=== PATIENT | male | born 1935 | race Caucasian/White ===

== ENCOUNTER → 2019-01-23 09:43 | Outpatient (CLI) | payer MEDICARE, OTHER, SELFPAY ==
[2019-01-23 11:03] LABS: Blood Urea Nitrogen 17 mg/dL (9-20); Calcium 8.9 mg/dL (8.4-10.2); Carbon Dioxide 32 mmol/L (22-32); Chloride 103 mmol/L (98-107); Estimated Glomerular Filt Rate > 60.0 mL/min (>60); Glucose 139 mg/dL (80-110); HEMOLYSIS < 15 (0-50); Potassium 4.1 mmol/L (3.4-5.1); Sodium 140 mmol/L (137-145)
[2019-01-23 14:04] LABS: Creatinine Urine Random 94.3 mg/dL
[2019-01-23 14:07] LABS: Microalbumi Creatinin Ratio Ur 12.7 ug/mg CR (<30); Microalbumin Urine Random 1.2 mg/dL (0-1.6)
== END ==
PROVIDERS: PCP Internal Medicine; Visit Provider Internal Medicine
DX: I10 Essential (primary) hypertension (principal); R73.01 Impaired fasting glucose; R80.8 Other proteinuria
CPT/HCPCS: 36415; 80048; 82043; 82570

== ENCOUNTER → 2019-05-17 09:13 | Outpatient (CLI) | payer MEDICARE, OTHER, SELFPAY ==
[2019-05-17 10:30] LABS: Add Manual Diff / Slide Review NO; Basophils Absolute Auto 0 /uL (0-100); Basophils Percent Auto 0.5 % (0-2); Eosinophils Absolute Auto 200 /uL (0-450); Eosinophils Percent Auto 2.6 % (2-4); Hematocrit 51.9 % (41-53); Hemoglobin 17.2 g/dL (13.5-17.5); Lymphocytes Absolute Auto 2400 /uL (1100-4500); Lymphocytes Percent Auto 34.7 % (25-40); Mean Corpuscular HGB Conc 33.1 % (30-36); Mean Corpuscular Hemoglobin 30.5 PG (26-34); Mean Corpuscular Volume 92.1 fL (80-100); Monocytes Absolute Auto 700 /uL (0-900); Monocytes Percent Auto 10.5 % (3-14); Neutrophils Absolute Auto 3600 /uL (1500-7000); Neutrophils Percent Auto 51.7 % (50-75); Platelet Count 172 X10^3/uL (150-400); Red Blood Cell Count 5.63 X10^6/uL (4.5-5.9); Red Cell Distribution Width 13.8 % (11.6-14.8); White Blood Cell Count 6.9 X10^3/uL (4.5-11.0)
[2019-05-17 10:51] LABS: Alanine Aminotransferase 28 IU/L (21-72); Albumin 3.9 g/dL (3.5-5.0); Albumin Globulin Ratio 1.3 (1.0-2.8); Alkaline Phosphatase 82 U/L (38-126); Aspartate Aminotransferase 31 IU/L (17-59); Bilirubin Total 0.8 mg/dL (0.2-1.3); Blood Urea Nitrogen 13 mg/dL (9-20); Calcium 8.6 mg/dL (8.4-10.2); Carbon Dioxide 31 mmol/L (22-32); Chloride 102 mmol/L (98-107); Cholesterol 154 mg/dL (140-199); Estimated Glomerular Filt Rate > 60.0 mL/min (>60); Glucose 101 mg/dL (80-110); HDL Cholesterol 43 mg/dL (40-60); HEMOLYSIS < 15 (0-50); LDL Cholesterol Calculated 93 mg/dL (<100); Potassium 4.1 mmol/L (3.4-5.1); Sodium 139 mmol/L (137-145); Total Protein 6.9 g/dL (6.3-8.2); Triglycerides 89 mg/dL (35-150)
== END ==
PROVIDERS: PCP Internal Medicine; Visit Provider Internal Medicine
DX: E78.00 Pure hypercholesterolemia, unspecified (principal); I10 Essential (primary) hypertension; D75.1 Secondary polycythemia; E11.9 Type 2 diabetes mellitus without complications; I48.91 Unspecified atrial fibrillation
CPT/HCPCS: 36415; 80053; 80061; 85025

== ENCOUNTER → 2020-02-13 11:08 | Outpatient (CLI) | payer MEDICARE, OTHER, SELFPAY ==
[2020-02-13 12:47] LABS: Add Manual Diff / Slide Review NO; Basophils Absolute Auto 0 /uL (0-100); Basophils Percent Auto 0.6 % (0-2); Eosinophils Absolute Auto 200 /uL (0-450); Eosinophils Percent Auto 3.2 % (2-4); Hematocrit 50.8 % (41-53); Hemoglobin 17.1 g/dL (13.5-17.5); Lymphocytes Absolute Auto 1600 /uL (1100-4500); Lymphocytes Percent Auto 27.8 % (25-40); Mean Corpuscular HGB Conc 33.6 % (30-36); Mean Corpuscular Hemoglobin 30.3 PG (26-34); Mean Corpuscular Volume 90.1 fL (80-100); Monocytes Absolute Auto 700 /uL (0-900); Monocytes Percent Auto 11.7 % (3-14); Neutrophils Absolute Auto 3300 /uL (1500-7000); Neutrophils Percent Auto 56.7 % (50-75); Platelet Count 143 X10^3/uL (150-400); Red Blood Cell Count 5.64 X10^6/uL (4.5-5.9); White Blood Cell Count 5.9 X10^3/uL (4.5-11.0)
[2020-02-13 13:00] LABS: Hemoglobin A1C% w Est Avg Glu 5.8 % (4.0-6.0)
[2020-02-13 13:14] LABS: Alanine Aminotransferase 21 IU/L (<50); Albumin 3.8 g/dL (3.5-5.0); Albumin Globulin Ratio 1.3 (1.0-2.8); Alkaline Phosphatase 67 U/L (38-126); Aspartate Aminotransferase 34 IU/L (17-59); Bilirubin Total 0.8 mg/dL (0.2-1.3); Blood Urea Nitrogen 17 mg/dL (9-20); Calcium 8.9 mg/dL (8.4-10.2); Carbon Dioxide 31 mmol/L (22-32); Chloride 103 mmol/L (98-107); Cholesterol 144 mg/dL (140-199); Estimated Glomerular Filt Rate > 60.0 mL/min (>60); Glucose 87 mg/dL (80-110); HDL Cholesterol 32 mg/dL (40-60); HEMOLYSIS 20 (0-50); LDL Cholesterol Calculated 91 mg/dL (<100); Potassium 4.5 mmol/L (3.4-5.1); Sodium 139 mmol/L (137-145); Total Protein 6.8 g/dL (6.3-8.2); Triglycerides 107 mg/dL (35-150)
[2020-02-13 14:30] LABS: Creatinine Urine Random 112.1 mg/dL
[2020-02-13 14:35] LABS: Microalbumi Creatinin Ratio Ur 60.6 ug/mg CR (<30); Microalbumin Urine Random 6.8 mg/dL (0-1.6)
== END ==
PROVIDERS: PCP Internal Medicine; Referring Provider Internal Medicine; Visit Provider Internal Medicine
DX: I48.91 Unspecified atrial fibrillation (principal)
CPT/HCPCS: 36415; 80053; 80061; 82043; 82570; 83036; 85025

== ENCOUNTER → 2020-11-07 15:11 | Outpatient (ROUT) | payer MEDICARE, OTHER, SELFPAY ==
[2020-11-07 15:54] LABS: Add Manual Diff / Slide Review NO; Basophils Absolute Auto 0 /uL (0-100); Basophils Percent Auto 0.6 % (0-2); Eosinophils Absolute Auto 300 /uL (0-450); Eosinophils Percent Auto 3.5 % (2-4); Hematocrit 51.9 % (41-53); Hemoglobin 17.3 g/dL (13.5-17.5); Lymphocytes Absolute Auto 1800 /uL (1100-4500); Mean Corpuscular HGB Conc 33.3 % (30-36); Mean Corpuscular Hemoglobin 30.5 PG (26-34); Mean Corpuscular Volume 91.5 fL (80-100); Monocytes Absolute Auto 800 /uL (0-900); Monocytes Percent Auto 11.7 % (3-14); Neutrophils Absolute Auto 4300 /uL (1500-7000); Neutrophils Percent Auto 59.2 % (50-75); Platelet Count 151 X10^3/uL (150-400); Red Blood Cell Count 5.68 X10^6/uL (4.5-5.9); Red Cell Distribution Width 14.2 % (11.6-14.8); White Blood Cell Count 7.3 X10^3/uL (4.5-11.0)
[2020-11-07 16:04] LABS: Alanine Aminotransferase 25 IU/L (<50); Albumin 3.8 g/dL (3.5-5.0); Albumin Globulin Ratio 1.2 (1.0-2.8); Alkaline Phosphatase 73 U/L (38-126); Aspartate Aminotransferase 35 IU/L (17-59); BUN Creatinine Ratio 15.1 (6-22); Bilirubin Total 0.6 mg/dL (0.2-1.3); Blood Urea Nitrogen 14 mg/dL (9-20); Calcium 8.9 mg/dL (8.4-10.2); Carbon Dioxide 30 mmol/L (22-32); Chloride 104 mmol/L (98-107); Cholesterol 154 mg/dL (140-199); Estimated Glomerular Filt Rate > 60.0 mL/min (>60); Globulin 3.1 g/dL (1.7-4.1); Glucose 99 mg/dL (80-110); HDL Cholesterol 42 mg/dL (40-60); HEMOLYSIS 19 (0-50); LDL Cholesterol Calculated 93 mg/dL (<100); Potassium 4.2 mmol/L (3.4-5.1); Sodium 141 mmol/L (137-145); Total Protein 6.9 g/dL (6.3-8.2); Triglycerides 97 mg/dL (35-150)
[2020-11-07 16:42] LABS: Hemoglobin A1C% w Est Avg Glu 5.8 % (4.0-6.0)
== END ==
PROVIDERS: PCP Internal Medicine; Visit Provider Physician Assistant
DX: D75.1 Secondary polycythemia (principal); E78.00 Pure hypercholesterolemia, unspecified; E11.21 Type 2 diabetes mellitus with diabetic nephropathy; I10 Essential (primary) hypertension; K06.8 Other specified disorders of gingiva and edentulous alveolar ridge
CPT/HCPCS: 80053; 80061; 83036; 85025

== ENCOUNTER → 2020-11-26 09:51 | Outpatient (CLI) | payer MEDICARE, OTHER, SELFPAY ==
[2020-11-26 11:00] LABS: Hemoglobin A1C% w Est Avg Glu 5.9 % (4.0-6.0)
[2020-11-26 11:37] LABS: BUN Creatinine Ratio 14.9 (6-22); Blood Urea Nitrogen 14 mg/dL (9-20); Calcium 8.9 mg/dL (8.4-10.2); Carbon Dioxide 28 mmol/L (22-32); Chloride 103 mmol/L (98-107); Estimated Glomerular Filt Rate > 60.0 mL/min (>60); Glucose 148 mg/dL (80-110); HEMOLYSIS < 15 (0-50); Potassium 4.3 mmol/L (3.4-5.1); Sodium 138 mmol/L (137-145)
[2020-11-26 11:39] LABS: Creatinine Urine Random 152.7 mg/dL
[2020-11-26 11:43] LABS: Microalbumi Creatinin Ratio Ur 56.9 ug/mg CR (<30); Microalbumin Urine Random 8.7 mg/dL (0-1.6)
== END ==
PROVIDERS: PCP Internal Medicine; Referring Provider Internal Medicine; Visit Provider Internal Medicine
DX: E11.9 Type 2 diabetes mellitus without complications (principal); I10 Essential (primary) hypertension; E78.00 Pure hypercholesterolemia, unspecified; R80.8 Other proteinuria
CPT/HCPCS: 36415; 80048; 82043; 82570; 83036

== ENCOUNTER → 2020-12-03 16:14 | Outpatient (ROUT) | payer MEDICARE, OTHER, SELFPAY ==
[2020-12-03 16:27] LABS: INR 2.2 (0.9-1.3); Prothrombin Time 25.4 SECONDS (10.1-12.7)
== END ==
PROVIDERS: PCP Internal Medicine; Visit Provider Internal Medicine
DX: I48.91 Unspecified atrial fibrillation (principal)
CPT/HCPCS: 85610

== ENCOUNTER 2024-08-06 00:27 | Emergency (ER) | payer MEDICARE, OTHER, SELFPAY ==
[2024-08-06] VITALS (11 sets, daily range): BP systolic 146–163; BP diastolic 72–95; PULSE 68–107; RESP 16–20; TEMP 36.5; O2SAT 96–99; BMI 32.7
--- NOTE | 2024-08-06 00:49 | PC.NURSE ---
Daughter and at bedside
--- NOTE | 2024-08-06 01:59 | PC.NURSE ---
states removed nasal clamp to wipe face and noted continued bleeding.
--- NOTE | 2024-08-06 02:18 | ED.EPISTAXIS ---
HPI - Epistaxis General Chief complaint: Nasal Problem Stated complaint: nose bleed 1 hr + Time Seen by Provider: 08/06/24 00:53 Source: patient and EMS Mode of arrival: EMS History of Present Illness HPI Narrative: 89-year-old male on chronic warfarin anticoagulation for atrial fibrillation has complained of left-sided nose bleeding after he blew his nose really hard, no direct blow to his nose. He is taking the same regimen of warfarin 5 mg tablets on Sundays, and 2.5 mg taken on Saturdays. He has not had his INR checked for 4-6 weeks however. He does not have home INR blood testing. He is due to see his provider this Wednesday in 3 days. Related Data Home Medications Medication Instructions Recorded Confirmed [aspirin] 325 mg PO BID ##0 05/19/17 03/17/19 losartan 25 mg tablet (Cozaar) 50 mg PO BID ##0 06/07/17 03/17/19 warfarin 1 mg tablet (Coumadin) 5 mg PO QDAY ##0 06/07/17 03/17/19 atorvastatin 10 mg tablet (Lipitor) ##0 10/19/17 03/17/19 carvedilol 25 mg tablet (Coreg) 25 mg PO BID ##0 11/08/17 03/17/19 warfarin 5 mg tablet (Coumadin) 2.5 mg PO QDAY ##0 11/08/17 03/17/19 Previous Rx's Medication Instructions Recorded clotrimazole 1 % topical cream 1 gm topical BID ##30 05/19/17 Allergies Allergy/AdvReac Type Severity Reaction Status Date / Time No Known Allergies Allergy Uncoded 11/10/17 12:32 Patient History Social History Smoking Status: Never smoker Smoking Status: Never smoker Exam Narrative Exam Narrative: GENERAL: Well-developed patient, in mild distress. HEAD: Atraumatic. Normocephalic. EYES: Pupils equal round and reactive. Extraocular motions intact. No scleral icterus. No injection or drainage. ENT: Left-sided dried blood ala, nose clamp in place. Throat without erythema, tonsillar hypertrophy or exudate. Airway patent. NECK: Trachea midline. Non tender CARDIOVASCULAR: Regular rate and rhythm without murmurs, gallops, or rubs. RESPIRATORY: Clear to auscultation. Breath sounds equal bilaterally. No wheezes, rales, or rhonchi. GASTROINTESTINAL: Abdomen soft, non-tender, nondistended. EXTREMITIES: No edema or joint tenderness. BACK: Nontender without deformity or crepitance. No flank tenderness. NEURO: AOx3. Motor functions grossly nonfocal SKIN: No rash or erythema of visible areas Initial Vital Signs Initial Vital Signs: Vital Signs Temperature 97.7 F 08/06/24 00:31 Pulse Rate 81 08/06/24 00:31 Respiratory Rate 18 08/06/24 00:31 Blood Pressure 163/95 H 08/06/24 00:31 Pulse Oximetry 99 08/06/24 00:31 Oxygen Delivery Method Room Air 08/06/24 00:31 Course Orders Ordered: ED Orders 08/06/24 02:36 CBC Auto Diff [Complete Blood Count AUTO DIFF] Stat Prothrombin Time INR Stat Discontinued Medications Silver Nitrate/Potassium Nitrate (Silver Nitrate Stick) 2 each TOP NOW ONE Stop: 08/06/24 02:24 Last Admin: 08/06/24 02:27 Dose: 2 each Documented By: SUJIT Vital Signs Vital signs: Vital Signs - 8 hr 08/06/24 00:31 08/06/24 00:34 08/06/24 00:36 Temperature 97.7 F Pulse Rate 81 95 H 82 Respiratory Rate 18 Blood Pressure 163/95 H Pulse Oximetry 99 96 97 Oxygen Delivery Method Room Air 08/06/24 00:37 08/06/24 00:37 08/06/24 01:00 Temperature Pulse Rate 107 H 72 Respiratory Rate 20 Blood Pressure 163/95 H Pulse Oximetry 97 97 Oxygen Delivery Method Room Air 08/06/24 01:30 08/06/24 01:31 08/06/24 01:31 Temperature Pulse Rate 79 80 Respiratory Rate Blood Pressure 151/87 H Pulse Oximetry 99 99 Oxygen Delivery Method 08/06/24 02:00 08/06/24 02:01 08/06/24 02:01 Temperature Pulse Rate 85 75 Respiratory Rate 16 Blood Pressure 148/72 H Pulse Oximetry 99 99 Oxygen Delivery Method Room Air 08/06/24 02:30 08/06/24 02:30 08/06/24 03:25 Temperature Pulse Rate 83 68 Respiratory Rate 18 Blood Pressure 146/82 H Pulse Oximetry 98 97 Oxygen Delivery Method Room Air Room Air 08/06/24 03:25 Temperature Pulse Rate Respiratory Rate Blood Pressure 147/92 H Pulse Oximetry Oxygen Delivery Method [facility] - Epistaxis Lab Data Attestation: I reviewed the patient's lab results. Lab results narrative: Platelets adequate, hemoglobin 17.8, white blood cell count not elevated. INR 3.3 elevated 08/06/24 02:36 Labs: Lab Results 08/06/24 Range/Units 02:36 WBC 10.5 (4.5-11.0) X10^3/uL RBC 5.90 (4.5-5.9) X10^6/uL Hgb 17.8 H (13.5-17.5) g/dL Hct 53.6 H (41-53) % MCV 90.9 (80-100) fL MCH 30.2 (26-34) PG MCHC 33.2 (30-36) % RDW 14.0 (11.6-14.8) % Plt Count 178 (150-400) X10^3/uL Neut % (Auto) 70.8 (50-75) % Lymph % (Auto) 18.5 L (25-40) % [place] % (Auto) 7.5 (3-14) % Eos % (Auto) 2.5 (2-4) % Baso % (Auto) 0.7 (0-2) % Neut # (Auto) 7400 H (3439-3831) /uL Lymph # (Auto) 1900 (7796-3028) /uL [place] # (Auto) 800 (0-900) /uL Eos # (Auto) 300 (0-450) /uL Baso # (Auto) 100 (0-100) /uL PT 36.8 H (9.4-12.5) SECONDS INR 3.3 H (0.9-1.3) [facility] Narrative Medical decision making narrative: 89-year-old male with epistaxis in setting of chronic warfarin anticoagulation for atrial fibrillation, last INR check was 4-6 weeks ago per family. No home INR monitoring. We will send CBC and INR. Nose clamp removed left side, no active bleeding, on nasal speculum direct exam there seems to be some recent lab blood along the nasal septum, silver nitrate application x2 applied, tolerated well. Patient additionally observed awaiting lab results, no rebleeding. INR 3.3 elevated, usual therapeutic range 2.0-3.0 for atrial fibrillation. We discussed holding today/Wednesday dose of warfarin, then switching his regimen of warfarin 5 mg higher dose to Wednesday only 3 times a week, and his 2.5 mg lower dose more frequently on Wednesday. Follow up with primary care provider later this week as scheduled, for repeat INR exam. Return precautions regarding nasal bleeding discussed. Stable, improved, home with family Discharge Plan Departure Patient Disposition: Home Clinical Impression: Epistaxis, Chronic anticoagulation Activity Restrictions/Additional Instructions: Left-sided nose bleeding, history of warfarin anticoagulation for atrial fibrillation. Local nose clamp after pre-hospital Afrin spray seemed to be effective. On direct examination there is possible recent bleeding on the nasal septum on the left-hand side, 2 sticks of silver nitrate were directly applied to this area to hopefully cauterize it and keep it from bleeding. It could very well rebleed. If you have rebleeding then consider head tilt maneuver and direct pinching with your fingers over the soft part of the nose for 10 minutes, then use nose clamp for an additional 20 minutes. Recheck if persistent nose bleeding. Try not to blow your nose. Try not to pick at your nose. Typically the therapeutic goal of INR for this condition is 2.0-3.0 range. You had not had your INR checked for a number of weeks. INR blood test today showed result 3.3, which is slightly elevated. For now please hold today's dose on Wednesday of your warfarin. Going forward for now consider current regimen: Take 2.5 mg warfarin daily on Wednesdays. Take 5 mg warfarin daily on Saturdays. Recheck your INR in clinic on Wednesday, hopefully you will be back in therapeutic range. Return earlier to this/nearest emergency department for any change worsening symptoms or any concerns prior Prescriptions: No Action [aspirin] 325 mg PO BID Qty: 0 clotrimazole 1 % cream 1 gm Topical BID Qty: 30 0RF losartan [Cozaar] 25 MG tablet 50 mg PO BID Qty: 0 warfarin [Coumadin] 1 MG tablet 5 mg PO QDAY Qty: 0 atorvastatin [Lipitor] 10 mg tablet Qty: 0 carvedilol [Coreg] 25 MG tablet 25 mg PO BID Qty: 0 warfarin [Coumadin] 5 MG tablet 2.5 mg PO QDAY Qty: 0 Referrals: Ellen Cleaning MD [Primary Care Provider] - Stand Alone Forms: Patient Portal/API/Survey
[2024-08-06] MEDS: SILVER NITRATE STICK 2 EACH TOP (02:27)
[2024-08-06 02:45] LABS: Add Manual Diff / Slide Review NO; Basophils Absolute Auto 100 /uL (0-100); Basophils Percent Auto 0.7 % (0-2); Eosinophils Absolute Auto 300 /uL (0-450); Eosinophils Percent Auto 2.5 % (2-4); Hematocrit 53.6 % (41-53); Hemoglobin 17.8 g/dL (13.5-17.5); Lymphocytes Absolute Auto 1900 /uL (1100-4500); Lymphocytes Percent Auto 18.5 % (25-40); Mean Corpuscular HGB Conc 33.2 % (30-36); Mean Corpuscular Hemoglobin 30.2 PG (26-34); Mean Corpuscular Volume 90.9 fL (80-100); Monocytes Absolute Auto 800 /uL (0-900); Monocytes Percent Auto 7.5 % (3-14); Neutrophils Absolute Auto 7400 /uL (1500-7000); Neutrophils Percent Auto 70.8 % (50-75); Platelet Count 178 X10^3/uL (150-400); White Blood Cell Count 10.5 X10^3/uL (4.5-11.0)
--- NOTE | 2024-08-06 02:55 | PC.NURSE ---
Nasal clamps removed per Dr. Thrasher
[2024-08-06 02:56] LABS: INR 3.3 (0.9-1.3); Prothrombin Time 36.8 SECONDS (9.4-12.5)
== END 2024-08-06 03:31 | disposition home or self-care (01) ==
PROVIDERS: Emergency Provider Emergency Medicine; PCP Internal Medicine
DX: R04.0 Epistaxis (principal); Z79.01 Long term (current) use of anticoagulants
CPT/HCPCS: 36415; 85025; 85610; 99283

== ENCOUNTER → 2024-10-13 13:10 | Outpatient (CLI) | payer MEDICARE, OTHER, SELFPAY ==
[2024-10-13 14:45] LABS: INR 3.3 (0.9-1.3); Prothrombin Time 35.8 SECONDS (9.4-12.5)
== END ==
PROVIDERS: PCP Internal Medicine; Visit Provider Nurse Practitioner
DX: I48.20 Chronic atrial fibrillation, unspecified (principal)
CPT/HCPCS: 36415; 85610